=== PATIENT | male | born 1980 | race Caucasian/White ===

== ENCOUNTER 2022-02-14 19:33 | Outpatient (CLI) | payer OTHER, SELFPAY ==
--- NOTE | 2022-02-21 12:31 | W.PM.SLEEP ---
Sleep Study Details Details Interpreting Provider: Bernard Zimmer MD Date of Sleep Study: 02/14/22 Sleep Study Details: STUDY TYPE:? Home ? BMI:? Not record ORDERING PROVIDER:? Bahman INDICATION:? Concerns about sleep apnea ? SLEEP SUMMARY:? 401 minutes of monitor time RESPIRATORY SUMMARY:? AHI 43.1, central index 0.3. Supine AHI 45.6, prone AHI 12, left lateral HI 76, right lateral AHI 34.5. Low oxygen 77 17.3% of study oxygen less than 90%, 1.5% of study oxygen less than 85%, 0.2% of study oxygen less than 80%. Snore summary 9.5% PERIODIC LIMB MOVEMENTS OF SLEEP:? Not recorded CARDIAC:? 37 the 97, mean 58.2 IMPRESSION:? Severe obstructive sleep apnea worse in the supine and left lateral positions. Severe hypo oxygenation was noted but few central apneas. RECOMMENDATION: AutoSet CPAP at 4-17 versus an in-lab titration or the recommended treatment options.
== END 2022-02-14 19:34 | disposition home or self-care (01) ==
LOC: SLEEP 19:33
PROVIDERS: Visit Provider Otolaryngology
DX: G47.33 Obstructive sleep apnea (adult) (pediatric) (principal)
CPT/HCPCS: 95806